=== PATIENT | male | born 1995 | race Caucasian/White ===

== ENCOUNTER 2017-04-11 01:39 | Emergency (ER) | END 2017-04-11 05:42 | disposition home or self-care (01) | DX: S52.502A Unspecified fracture of the lower end of left radius, initial encounter for closed fracture (principal); S00.93XA Contusion of unspecified part of head, initial encounter; S20.219A Contusion of unspecified front wall of thorax, initial encounter; S20.229A Contusion of unspecified back wall of thorax, initial encounter; R51 Headache; W10.9XXA Fall (on) (from) unspecified stairs and steps, initial encounter; Y92.9 Unspecified place or not applicable | CPT/HCPCS: 29125; 70450; 71010; 72131; 73110; Z7502; Z7610 ==

== ENCOUNTER 2017-12-08 22:28 | Emergency (ER) | END 2017-12-09 00:19 | disposition home or self-care (01) ==

== ENCOUNTER 2018-05-02 23:10 | Emergency (ER) | END 2018-05-03 02:55 | disposition home or self-care (01) ==